=== PATIENT | male | born 1995 | race American Indian/Alaskan Native ===

== ENCOUNTER 2017-08-04 06:34 | Emergency (ER) | payer OTHER ==
[2017-08-04 06:46] VITALS: BP 115/72; PULSE 94; RESP 16; TEMP 97.6; O2SAT 98
[2017-08-04] MEDS ORDERED: Bacitracin 500 Units/gm Oint Foilpak UD TOP ONE (07:12)
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
[2017-08-04] MEDS ORDERED: Bacitracin 500 Units/gm Oint Foilpak UD ONE (07:29)
== END 2017-08-04 07:30 | disposition home or self-care (01) ==
LOC: C.ER 06:34
DX: R07.0 Pain in throat (principal); S60.511A Abrasion of right hand, initial encounter; Y08.89XA Assault by other specified means, initial encounter; Y92.89 Other specified places as the place of occurrence of the external cause